=== PATIENT | female | born 1965 | race Caucasian/White ===

== ENCOUNTER 2021-02-04 11:03 | Day surgery (SDC) | payer BC, SELFPAY ==
[2021-02-04 11:17] VITALS: BMI 22.1
[2021-02-04 11:25] VITALS: BP 153/92; PULSE 89; RESP 16; TEMP 36.4; O2SAT 98
--- NOTE | 2021-02-04 11:39 | HO.ANESPROP2 ---
HPI - Anesthesia Eval Consult details Narrative: 55 year old female patient for colonoscopy [facility] Past Medical History Medical History (Updated 02/04/21 @ 11:48 by Laura Porras) Diverticulitis Graves disease H/O thyroid cyst Hyperplastic colon polyp Neck pain Family History Family history of problems with anesthesia: No Surgical History Surgical History H/O colonoscopy History of spinal fusion Hx laparoscopic cholecystectomy History of Problems with Anesthesia: No Social History Social History Patient Tobacco Use Status: Never used Tobacco Second Hand Smoke Exposure: No Use of substances other than those prescribed or required for medical reasons: No Are you DNR?: No Advance Directives: No Advance Directives Information Provided: Yes Advance Directives on File: No Meds Allergies Allergy/AdvReac Type Severity Reaction Status Date / Time No Known Allergies Allergy Unverified 04/29/20 17:21 Active Medications: Current Medications Generic Name Dose Route Start Last Admin Trade Name Samantha PRN Reason Stop Dose Admin Lactated Ringer's 1,000 mls @ 100 mls/hr 02/04/21 11:15 Lr IVCONT .Q10H [facility] Home Medications Medication Instructions Recorded Confirmed Last Taken Type amitriptyline tab PO BEDTIME 02/04/21 Unknown History sucralfate PO 02/04/21 Unknown History sulfamethoxazole-trimethoprim 1 tab PO BID 02/04/21 02/04/21 Unknown History Exam Exam Date and Time: February 04, 2021 1139 Height,Weight and Vital Signs: Height 5 ft 3 in Weight 56.699 kg Last Vital Signs Temp 97.5 F 02/04/21 11:25 Pulse 89 02/04/21 11:25 Resp 16 02/04/21 11:25 BP 153/92 H 02/04/21 11:25 Pulse Ox 98 02/04/21 11:25 Airway Mallampati Class: II TM Dist: >3cm Neck ROM: Limited (Cervical fusion) Heart: RRR ??murmur Lungs: CTAB Assessment and Plan Assessment Anesthesia Assessment: Anesthesia Plan Discussed and Chart Reviewed Final Anesthetic Review NPO: Yes ASA Class: II Final Preanesthetic Review: No Changes in Pt Med Stat, Meds/Allgs Chart Reviewed, Consent Obtained/Reviewed and Anes Risks/Benef Reviewed Patient Risk: Low Procedure Risk: Low Assessment/Block/Sedation in SS: Assess/Block/Sedation-SS Anesthetic Plan Anesthetic Plan: MAC: Disposition: Standard PACU
--- NOTE | 2021-02-04 12:10 | MHC.SHP ---
Pre-Procedural Eval Section A Date of Service: 02/04/21 Section B Chief Complaint: diarrhea Details of Present Illness: seeH&P no changes Relevant Family History (Specify if Yes): Yes Relevant Social History: None Present Medications: see Short Stay Collaborative assessment Medical History: No relevant PMH History of Previous Operations: No relevant previous surgery Allergies: Allergies Allergy/AdvReac Type Severity Reaction Status Date / Time No Known Allergies Allergy Unverified 04/29/20 17:21 Review of Systems Sugical H&P ROS: Negative: Constitution, Cardiovascular, Respiratory, Neurological, Psychiatric, Hem-Onc, Allergic/Immunologic, Gastrointestinal, Genitourinary, Musculoskeletal, Integumentary, Endocrine and Eyes/Ears/Nose/Throat Exam Surgical H&P Exam: Normal: HEENT, Normal: Heart, Normal: Lungs, Normal: Extremities, Normal: Abdomen, Normal: Skin and Normal: Neurological Plan Diagnosis/Plan: Unchanged I have reviewed the history and physical and performed a pertinent physical examination on my patient. No changes have occurred unless specified.
[2021-02-04 12:46] VITALS: BP 111/77; PULSE 86; RESP 16; TEMP 36.2; O2SAT 99
--- NOTE | 2021-02-04 12:46 | MHC.SHP ---
Pre-Procedural Eval Section A Date of Service: 02/04/21 The patient is an INPATIENT: No Section B Chief Complaint: diarrhea Details of Present Illness: see h&p. Stool studies negative. Relevant Social History: None Present Medications: see Short Stay Collaborative assessment Medical History: No relevant PMH History of Previous Operations: No relevant previous surgery Allergies: Allergies Allergy/AdvReac Type Severity Reaction Status Date / Time No Known Allergies Allergy Unverified 04/29/20 17:21 Review of Systems Sugical H&P ROS: Negative: Constitution, Cardiovascular, Respiratory, Neurological, Psychiatric, Hem-Onc, Allergic/Immunologic, Gastrointestinal, Genitourinary, Musculoskeletal, Integumentary, Endocrine and Eyes/Ears/Nose/Throat Exam Surgical H&P Exam: Normal: HEENT, Normal: Heart, Normal: Lungs, Normal: Extremities, Normal: Abdomen, Normal: Skin and Normal: Neurological Plan Diagnosis/Plan: Change (risks and benefits of colonoscopy discussed with patient, she agrees to proceed.) I have reviewed the history and physical and performed a pertinent physical examination on my patient. No changes have occurred unless specified.
--- NOTE | 2021-02-04 12:49 | PM.OP ---
Brief Operative Note Date of Service: 02/04/21 Pre-op diagnosis: diarrhea Post-op diagnosis: same Procedure: colonoscopy Surgeon: Tristan Sanchez Was an Conventional Mortgage Underwriter used for this Procedure?: No Estimated blood loss (mL): 5 Pathology: other (bx's ti, r colon, sigmoid) Condition: stable Disposition: PACU
[2021-02-04 13:01] VITALS: BP 116/69; PULSE 80; RESP 16; O2SAT 99
--- NOTE | 2021-02-04 22:23 | OP_ITS ---
SURGEON: Tristan Sanchez MD INDICATIONS: Diarrhea and change in bowel habits. PREOPERATIVE DIAGNOSIS: POSTOPERATIVE DIAGNOSIS: PROCEDURE PERFORMED: ESTIMATED BLOOD LOSS: COMPLICATIONS: ANESTHESIA: ASSISTANTS: SPECIMENS: PROCEDURE: Colonoscopy to the terminal ileum with biopsy. MEDICATIONS: Monitored anesthesia care. DESCRIPTION OF PROCEDURE: The history and physical was performed. The risks and benefits of the procedure were explained to the patient, and informed consent was obtained. The patient was placed in left lateral decubitus position. A digital rectal exam was performed and was found to be normal. The Olympus pediatric video colonoscope was introduced into the rectum and advanced to the cecum without difficulty. The cecum was identified by transillumination, palpation, and identification of ileocecal valve. Examination was performed. The scope was removed. She tolerated the procedure well and was taken to recovery area in stable condition. FINDINGS: The terminal ileum was examined and appeared normal. The visualized colonic mucosa was within normal limits, without evidence of masses or ulcers. No polyps were identified. There was mild sigmoid diverticulosis with a few scattered diverticula throughout the remainder of the colon. There was no evidence of endoscopic colitis or ileitis. Biopsies were obtained from the right colon, terminal ileum, and sigmoid. Retroflexed examination showed moderate-sized internal hemorrhoids. The quality of the prep was good. IMPRESSION: Normal colonoscopy. RECOMMENDATION: Follow up the biopsy results. MD NEETU Saldivar/ANTHONY / [phone]
== END 2021-02-04 13:51 | disposition home or self-care (01) ==
PROVIDERS: PCP Internal Medicine; Visit Provider Internal Medicine Gastroenterology
PROC: 0DJD8ZZ Inspection of Lower Intestinal Tract, Via Natural or Artificial Opening Endoscopic (ICD-10-PCS; CPT 45378; principal; 2021-02-04 12:00)
DX: R19.4 Change in bowel habit (principal); R19.7 Diarrhea, unspecified; K57.30 Diverticulosis of large intestine without perforation or abscess without bleeding; K64.8 Other hemorrhoids; E05.00 Thyrotoxicosis with diffuse goiter without thyrotoxic crisis or storm; Z90.49 Acquired absence of other specified parts of digestive tract; Z79.899 Other long term (current) drug therapy
CPT/HCPCS: 45380; 88305

== ENCOUNTER 2024-12-16 07:25 | Day surgery (SDC) | payer BC, SELFPAY ==
--- OUTSIDE RECORDS SUMMARY | 2024-12-02 12:59 | XMS_ITS | Patient Health Record ---
Author Organization [facility] Address [address] [place] [address] Care Team Providers Care Apartment Manager Name Role Phone Tree Aaron Primary Care Provider Unavaila ble Tristan Sanchez Jr Unavailable Allergies No Known Allergies Reason For Referral Referring Provider First Name Tree Referring Provider Last Name Galen Referring Provider Speciality Internal M edicine Referred Organization [facility] Referred Provider Tristan Sanchez Jr Referred Address [address],[place], [place],[address], Referred Provider Specialty Gastroentero logy Referral Priority Routine Medications Medication SIG (Take, Route, Frequency, Duration) Notes Start Date End Date Status Losartan Potassium 50 MG Oral for 90 Days Active Losartan Potassium 50 MG Oral for 90 Days Not-Taking Vitamin D3 Active Omeprazole 40 MG 1 capsule 1/2 to 1 hour before morning meal Orally Once a day for 30 days as needed 10/20/2024 Active Probiotic Active Multivitamin Active Immunizations Vaccine Route Administration Date Status Comme nts Influenza Unknown 05/26/2020 Administered Influenza Unknown 11/28/2024 Refused Social History Tobacco Use: Social History Observation Description Date Details (start date - stop date) Never Smoker NA - NA Tobacco Use/Smoking Question Answer Notes Patient is a nonsmoker Alcohol Screen Question Answer Notes Did you have a drink contain ing alcohol in the past year? Yes How often did you have a dri nk containing alcohol in the past year? 2 to 3 times a week (3 points) How often did you have 6 or more drinks on one occasion in the past year? Never (0 point) Points 3 Interpretation Positive Problems Problem Type SNOMED Code ICD Code Onset Dates Problem Status W/U Status Risk Notes Problem 505229604 Change in bowel habits (R19.4) Active confirmed Problem 22200418 Diarrhea, unspecified type (R19.7) Active confirmed Problem 380627368 Gastroesophageal reflux disease, unspecified whether esophagitis present (K21.9) Active confirmed Vital Signs Temperature 97.8 degrees Fahrenheit 11/28/2024 Blood pressure diastolic 01 mm Hg 11/28/2024 Height 63.5 in 11/28/2024 Blood pressure systolic 001 mm Hg 11/28/2024 Weight 130 lbs 11/28/2024 BMI 22.66 kg/m2 11/28/2024 Encounters Encounter Location Date Provider Diagnosis [facility] [address] [place] [address] 11/28/2024 Tristan Sanchez Jr Gastroesophageal reflux disease, unspecified whether esophagitis present K21.9 [facility] [address] [place] [address] 10/17/2024 Tristan Sanchez Jr Assessments Encounter Date Diagnosis (ICD Code) Assessment Notes Treatment Notes Treatment Clinical Notes Section Notes 11/28/2024 Gastroesophageal reflux disease, unspecified whether esophagitis present (ICD-10 - K21.9) We discussed gastroesophageal reflux disease today. We discussed diet, lifestyle modifications, and weight management. We recommended she continue omeprazole. It is possible that her recent RSV infection has exacerbated her symptoms. Because of her longstanding and persistent symptoms, we have recommended further evaluation with upper endoscopy. She is aware of risks and benefits and agrees to proceed. 11/28/2024 Other Endoscopy material was printed We discussed gastroesophageal reflux disease today. We discussed diet, lifestyle modifications, and weight management. We recommended she continue omeprazole. It is possible that her recent RSV infection has exacerbated her symptoms. Because of her longstanding and persistent symptoms, we have recommended further evaluation with upper endoscopy. She is aware of risks and benefits and agrees to proceed. Plan Of Treatment Pending Test Test Name Order Date LIVER PROFILE 11/17/2020 LIPASE 11/17/2020 CBC w/o DIFF 11/17/2020 STOOL WBC 11/17/2020 OVA & PARASITES (O&P) 11/17/2020 PANCREATIC ELASTASE 11/17/2020 FECAL FAT QUAL 11/17/2020 CULTURE, STOOL 11/17/2020 Future Test Test Name Order Date COLONOSCOPY 02/01/2021 UPPER GI ENDOSCOPY 11/28/2024 Next Appt Details Provider Name:Tristan Garcia Rodneymitch sharmakrystle Barreto, 12/16/2024 10:10:00 AM, [address] , [place], [place], [phone], Insurance Providers Payer Name Payer Address Payer Phone Subscriber Number Group Number Insured Name Patient Relationship to Insured Coverage Start Date Coverage End Date [facility] [employer] [address] [place] [address] [id number] ALIZA LIVINGSTON Self - patient is the insured Medical (General) History Medical History History ICD Code Neck Pain Graves' disease colonoscopy 09/24/18 for scre ening and a history of diverticulitis. Small rectal hyperplastic polyp, five-year followup Surgical History Surgery Date(Month/Year) right thyroid lobectomy, benign disease 2015 cholecystectomy 2014 Cervical Fusion - c 01/17 2017 Cervical Fusion - c- 12/16 2004
--- OUTSIDE RECORDS SUMMARY | 2024-12-02 12:59 | XMS_ITS | Patient Health Record ---
Author Organization [facility] Address [address] [place] [address] Care Team Providers Care Customer Care Voice Consultant Name Role Phone Tree Aaron MD Primary Care Provider Radha Arroyociara Rosario Unavailable [phone] Allergies No Known Allergies Reason For Referral No Information Medications Medication SIG (Take, Route, Frequency, Duration) Notes Start Date End Date Status Probiotic 1 capsule Orally onc e a day Active methIMAzole 10 MG as directed Orally O nce a day Active Bactrim Not-Taking LORazepam 0.5 MG 1 tablet at bedtime as needed Orally Once a day Not-Daniel ing Amitriptyline HCl 50 MG 1 tablet at bedt zafar Orally Once a day for 30 day(s) Not-Taking amLODIPine Besylate Active [place] 3-6-9 Complex Active Multivitamin as directed Orally O nce a day Active Social History Tobacco Use: Social History Observation Description Date Details (start date - stop date) Never Smoker NA - NA Tobacco Use/Smoking Question Answer Notes Are you a: nonsmoker Additional Findings: Tobacco Non-User Aggressive non-smoker Alcohol Screen Question Answer Notes Did you have a drink contain ing alcohol in the past year? Yes How often did you have a dri nk containing alcohol in the past year? 2 to 3 times a week (3 points) Points 3 Interpretation Positive Tobacco use other than smoking: Question Answer Notes Are you an other tobacco user? 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) Active confirmed Plan Of Treatment Pending Test Test Name Order Date X ray : Foot, left 3V 12/01/2022 Insurance Providers Payer Name Payer Address Payer Phone Subscriber Number Group Number Insured Name Patient Relationship to Insured Coverage Start Date Coverage End Date [facility] [address] [place] [address] [id number] Jude Masterson Other Medical (General) History Medical History History ICD Code Anxiety disorder Amnesia Tachycardia Hypothyroidism Kidney stones Reflux ( GERD) Insomnia Gall bladder problems Chicken pox Surgical History Surgery Date(Month/Year) cervical fusion 11/2004 cholecystectomy 2015 thyroidectomy 2017 1994 kidney stones 2018
--- OUTSIDE RECORDS SUMMARY | 2024-12-02 12:59 | XMS_ITS ---
Author Organization [facility] Address [address] [place] [address] Care Team Providers Care Front End Specialist Name Role Phone Galen Tree Primary Care Provider Alexandria Sanchez Jr, Tristan Cardona [phone] REASON FOR VISIT severe gerd? Medications Medication SIG (Take, Route, Fr equency, Duration) Notes Start Date End Date Status Omeprazole 40 MG 1 capsule 1/2 to 1 h our before morning meal Orally Once a day for 30 days 10/20/2024 Active Encounters Encounter Location Date Provider Diagnosis [facility] [address] [facility] [address] [place] [address] 10/17/2024 Tristan Sanchez Jr Plan Of Treatment Medication Medication Name Sig Start Date Stop Date Notes Omeprazole 40 MG 1 capsule 1/2 to 1 h our before morning meal Orally Once a day for 30 days 10/20/2024 Next Appt Details Provider Name:Tristan roman Jr, 12/16/2024 10:10:00 AM, [address] [place] [address], [phone], Progress Notes * ALIZA LIVINGSTON MDOB:1965 ( 59 yo F)Acc No.[id number]:10/17/2024 Patient:?ALIZA LIVINGSTON :1965???Age:59 Y???Sex:Female Address:[address] [place] [address] , [address], [place], [address] * Refills? Start Omeprazole Capsule Delayed Release, 40 MG, Orally, 30, 1 capsule 1/2 to 1 hour before morning meal, Once a day, 30 days, Refills=5 * true * Date:? Generated for Jeimy cason/Mendez/Cristhian on:?12/02/2024 12:59 PM EDT
--- OUTSIDE RECORDS SUMMARY | 2024-12-02 12:59 | XMS_ITS | Data Portability ---
Author Organization [place] [facility], [facility] - [facility]IENT Address [address] [place] [address] Care Team Providers Care Aircraft Landing Gear Inspector Name Role Phone MARISOL FLORES Primary Care Provider Assessment No assessment recorded. Plan of Treatment Reminders Order Date Submit Date Provider Last Modified By Organization Details Last Modified Time Details Appointments None recorded. Lab None recorded. Referral physical therapist referral - Diagnosis: Left Knee ArthritisFr equency: 2x a weekDuratio n: As directed by therapistTr eatment: Evaluate and treat as indicated, ROM and strengtheni ng 2023 024 [email or web address] [facility], [address] [place] [address], [id number], 4 09:54:18 Procedures None recorded. Surgeries None recorded. Imaging None recorded. Medication Orders Zilretta 32 mg intra-artic ular suspension, extended release 2024 025 [email or web address] Not available 5 10:33:56 Zilretta 32 mg intra-artic ular suspension, extended release 2023 024 [email or web address] [id number], [address], [place], [address], 4 07:52:38 Patient TargetsNo targets recorded. Patient InstructionsNo instructions recorded. Reason for Referral Physical Therapist Referral for Osteoarthritis of left knee joint Diagnosis: Left Knee ArthritisFrequency: 2x a weekDuration: As directed by therapistTreatment: Evaluate and treat as indicated, ROM and strengthening Referring Physician: Jarod Isabel, Nurse Practitioner- Specialist, Encounter Date: 12/27/2023 Results Created Date Observation Date Name Description Value Unit Range Abnormal Flag Note LastModifiedBy Organization Detail LastModifiedTime 12/27/1909/28/2023 MRI, knee, w/o contr ast No observ ation record ed. [email or web address] Not Available 12/26 09:22:00 Result Notes None recorded. Procedures Surgical History Date Name Laterality Status Provider Name and Address Organization Details Recorded Time 12/05/2004 Other completed Nadege Tong [facility] 12/27/2023 09:23:45 Imaging Results Imaging Date Name Status LastModified by Organiz ation Details LastModified Time 09/28/2023 MRI, knee, w/o contrast completed Information not available 12/27/2023 09:22:00 Procedure Notes None recorded. Medical Equipment None Reported. Allergies No known drug allergies Medications Name Sig Start Date Stop Date Status Note LastModified by Organization Details LastModified Time Zilretta 32 mg intra-art icular suspensio n,extende d release Take 32 mg by intraarticular route. 2024 active Not Available Not Available Not Avai lable Vitals Date Recorded Body weight Body mass index (BMI) Body height Provider Name and Address Organization Details Last Updated DateTime 12/27/2023 21698.05 g 21.8 kg/m2 161.29 cm Nadege Tong [facility] 12/27/2023 09:24:45 Date Recorded Body height Provider Name an d Address Organization Details Last Updated DateTime 02/13/2024 161.29 cm Rosio Jose [facility] 02/13/2024 07:44:40 Social History Question Answer Notes LastModified by Organizat ion Details LastModified Time Tobacco Smoking Status Never Smoker Nadege sauceda [facility] 12/27/2023 09:23:28 What Is Your Level Of Alcohol Consumption? Occasional [email or web address] Information not available 12/27/2023 Do You Or Have You Ever Used E-cigarettes Or Vape? 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 Mental Status None recorded. Family History Relationship Description Onset Age of this Age Resolved Age Notes LastModified by Organization Details LastModified Time Brother History of anesthesia problem [email or web address] Not available 12/26 09:23:21 Sister Pulmonary embolism [email or web address] Not available 12/26 09:23:21 Medical History Condition Response Thyroid Disorder Y Kidney / Bladder Infections Y Gynecological HistoryNo gynecological history recorded. Obstetrics History GPAL:G 0 P 0 0 0 0 Past Encounters Encounter ID Performer Location Encounter Start Date Encounter Closed Date Diagnosis/Indication Diagnosis SNOMED-CT Code Diagnosis ICD10 Code Diagnosis Note [id number] JAROD ISABEL NP [facility] [address] [facility] [address] [place] [address] 12/27/2023 09:04:24 12/27/2023 09:50:48 Osteoarthritis of left knee joint 2043085620 16382 M17.12 The patient has {{MILD MOD ERATE* SEV ERE}} patellofem oral osteoarthr itis of the {{RIGHT LE FT* BILATE RAL}} knee that {{HAS HAS NOT*}} failed conservati ve treatment. I would recommend {{ trying physical therapy and getting prior authorizat ion for a zilretta injection# }}. She will follow up with me for that injection once we have the approval. [id number] [facility] [address] [place] [address] 02/13/2024 07:41:48 02/13/2024 08:11:41 Osteoarthritis of left knee joint [id number] 51585 M17.12 Using sterile technique, I injected the {{LEFT* RI GHT BILATE RAL}} knee with 32mg of Zilretta - triamcinol one acetonide extended-r elease injectable suspension . The patient will follow up as needed. [id number] JAROD [facility]ABEL [facility] [address] [facility], [address] [place] [address] 08/01/2024 07:33:59 08/01/2024 13:16:08 Osteoarthritis of left knee joint [id number] 83431 M17.12 The patient has {{MILD MOD ERATE* SEV ERE}} patellofem oral osteoarthr itis of the {{RIGHT LE FT* BILATE RAL}} knee that {{HAS HAS NOT*}} failed conservati ve treatment and has responded well to the previous zilretta injection and standard kenalog did not give her significan t relief. I would recommend repeating that injection. We will submit for a prior authorizat ion for zilretta and she will follow up with us once it's approved.T his visit was conducted as a real time interactiv e {{audio au michelle/visual *}} telehealth visit conducted via {{Qure 4 U* Doxyme FaceTime P abner Call}} The patient was identified by name and date of and consented to this telehealth visit. The patient was at their home in [facility] and I was at my {{[place] [facility] [place] office [place] e in [facility]*}}. Participan ts of the telehealth visit included myself and the patient. The patient was last seen for an office visit on {{DATE 10/2023}}. This visit was done over the course of {{10 20* 3 0}} minutes including record review. [id number] Jarod Isabel, VIN[facility] [address] [place] [address] 09/26/2024 10:16:06 09/26/2024 10:35:48 Osteoarthritis of left knee joint [id number] 18377 M17.12 Using sterile technique, I injected the {{LEFT* RI GHT BILATE RAL}} knee with 32mg of Zilretta - triamcinol one acetonide extended-r elease injectable suspension . The patient will follow up as needed. Health Concerns Section Related Observation LastModified by Organization Detai ls LastModified Time None Recorded Concern Status LastModified by Organization Details LastModified Time None Recorded Advance Directives Directive None Recorded Payers Encounter Date Sequence Insurance Name Policy Number Policy Monahan Covered Member ID Monahan Member ID Guarantor Name 12/27/[address] [facility] [id number] Jude Masterson [id number] Bibi Masterson 02/13/2024 1 [place] [facility] [id number] Jude Masterson [id number] Bibi Masterson 08/01/[address] [facility] [facility] [id number] Jude Masterson [id number] Bibi Masterson 09/26/[address] [facility] [id number] Jude Masterson [id number] Bibi Masterson Notes Date Note Type Note Provider Name and Address Organization Details Recorded Time 12/27/2023 text/html The patient is a {{ 58#}} year old {{MALE FEMALE*}} who comes in complaining of {{RIGHT LEFT* BILA TERAL}} knee pain for {{ about 5 months now#}} and aggravated it when bowling, though she states her knee has talked to her for years now. She states she got a lot of swelling after the bowling incident. The patient ambulates today {{WITH A WITHOUT*}} {{AN ASSISTIVE DEVICE* CANE CRUTC H WALKER}}. The pain is on the {{ANTERIOR MEDIAL* LATERAL DIFFUSED} } {{ANTERIOR MEDIAL LATERAL DIFFUSED P OSTERIOR#}} aspects of the knee. She states she has good days and bad days. The pain {{IS* IS NOT}} worse with {{WEIGHT BEARING CLIMBING STAIRS GETTING UP FROM A CHAIR AFTER SITTING FOR A WHILE WALKING*}} {{WEIGHT BEARING CLIMBING STAIRS GETTING UP FROM A CHAIR AFTER SITTING FOR A WHILE WALKING flex ing it#}} {{WEIGHT BEARING CLIMBING STAIRS GETTING UP FROM A CHAIR AFTER SITTING FOR A WHILE WALKING knee ling on it#}}. She wears a neoprene sleeve and that helps her. It {{DOES* DOES NOT}} wake the patient up at night. The patient does not take medications for this. She cannot tolerate NSAIDs because she has a bad kidney. The patient has done other treatments including {{ORAL NSAIDS PHYSICAL THERAPY GEL INJECTIONS STEROID INJECTIONS*}}. Their last injection was on {{ September 22, 2023#}}. These {{DO DO NOT*}} help the symptoms. She states she had her left leg swell up a decent amount and had seen a vascular specialist. The pain {{DOES* DOES NOT}} affect the patient's activities of daily living. JAROD ISABEL NP [address] [place], [address], [facility] 12/27/2023 09:49:19 02/13/2024 text/html This is a very pleasant {{ 58#}} year old {{MALE FEMALE*}} presenting today for a zilretta injection into the {{RIGHT LEFT* BILA TERAL}} knee. The risks and benefits have been discussed and the patient agrees to proceed. JAROD ISABEL NP [address] [place], [address], [facility] 02/13/2024 08:09:30 08/01/2024 text/html Patient is following up with me for {{LEFT* RIGHT BILA TERAL}} knee osteoarthritis. The pain is {{THE SAME BETTER THAN WORSE THAN*}} their last office visit. Conservative treatments that have been tried including STEROID INJECTIONS. Their last steroid injection was zilretta on {{ 02/13/2024#}}. Standard kenalog injections only help her for She cannot tolerate NSAIDs. She has also done PT.The pain is on the MEDIAL aspect of the knee. The pain {{IS* IS NOT}} worse with weight bearing. She likes to power walk and she can't do that now. The knee swells and clicks on her. The pain {{DOES* DOES NOT}} wake them up at night now. The pain {{DOES* DOES NOT}} affect their activities of daily living. JAROD ISABEL NP [address] [place], [address], [facility] 08/01/2024 09:10:57 09/26/2024 text/html This is a very pleasant {{ 59#}} year old {{MALE FEMALE*}} presenting today for a zilretta injection into the {{RIGHT LEFT* BILA TERAL}} knee. The risks and benefits have been discussed and the patient agrees to proceed. Jarod Isabel NP [address] [place], [address], [facility] 09/26/2024 10:32:52 OBGyn Episode No OBEpisode recorded.
--- OUTSIDE RECORDS SUMMARY | 2024-12-02 13:00 | XMS_ITS ---
Author Organization [facility] Address [address] [place] [address] Care Team Providers Care Multifocal Button Inspector Name Role Phone Tree Aaron Primary Care Provider Unavaila Tristan Nj Jr REASON FOR VISIT DIARRHEA Encounters Encounter Location Date Provider Diagnosis [facility] [address] [address] 07/31/2024 Tristan Sanchez Jr Plan Of Treatment Next Appt Details Provider Name:Tristan roman Jr, 12/16/2024 10:10:00 AM, [address] [place] [address] , [place], [place], [phone], Progress Notes * ALIZA LIVINGSTON MDOB:1965 ( 59 yo F)Acc No.[id number]:07/31/2024 Progress Notes Patient:?ALIZA LIVINGSTON Provider:?Tristan Sanchez MD :1965???Age:59 Y???Sex:Female D ate:07/31/2024 Address:[address] [place], [place] [id number] Pcp:Tree Aaron Subjective: * Chief Complaints: * ???1. DIARRHEA. * Medical History:? Objective: * Vitals:? Assessment: Plan: * Treatment: * * The named appointment provid er may or may not be the originator of this progress note, and it is not deemed complete until electronically signed by the appointment provider. Sign off status: Pending * Provider:?Tristan Sanchez MD Date:?1 10/01/2023 Generated for Jeimy cason/Mendez/Parisitting on:?12/02/2024 12:59 PM EDT
--- OUTSIDE RECORDS SUMMARY | 2024-12-02 13:00 | XMS_ITS ---
Author Organization [facility] Address [address] [place] [address] Care Team Providers Care Retirement Actuary Name Role Phone Tree Aaron Primary Care Provider Tristan Arnold Jr Unavailable [phone] Allergies No Known Allergies REASON FOR VISIT Patient presents today for diarrhea Medications Medication SIG (Take, Route, Frequency, Duration) Notes Start Date End Date Status Losartan Potassium 50 MG Oral for 90 Days Active Vitamin D3 Active Omeprazole 40 MG 1 capsule 1/2 to 1 hour before morning meal Orally Once a day for 30 days as needed 10/20/2024 Active Probiotic Active Losartan Potassium 50 MG Oral for 90 Days Not-Taking Multivitamin Active Immunizations Vaccine Route Administration Date Status Comme nts Influenza Unknown 11/28/2024 Refused Social History Tobacco [...] Problem Status W/U Status Risk Notes Problem [id number] Gastroesophageal reflux disease, unspecified whether esophagitis present (K21.9) Active confirmed Vital Signs Temperature 97.8 degrees Fahrenheit 11/29/19 25 Blood pressure systolic 001 mm Hg 11/29/19 25 Blood pressure diastolic 01 mm Hg 025 Height 63.5 in 11/28/2024 Weight 130 lbs 11/28/2024 BMI 22.66 kg/m2 11/28/2024 Encounters Encounter Location Date Provider Diagnosis [facility] [address] [place] [address] 11/28/2024 Tristan Sanchez Jr Gastroesophageal reflux disease, unspecified whether esophagitis present K21.9 Assessments Encounter Date Diagnosis (ICD Code) Assessment [...] and agrees to proceed. Plan Of Treatment Treatment Notes Assessment Notes Other Endoscopy material w as printed Future Test Test Name Order Date UPPER GI ENDOSCOPY 11/28/2024 Next Appt Details Follow Up: 1 Year, Reason: Provider Name:Tristan roman Jr, 12/16/2024 10:10:00 AM, [address] [place] [address] , [place], [place], [phone], Progress Notes * ALIZA LIVINGSTON MDOB:1965 ( 59 yo F)Acc No.[id number]:11/28/2024 Progress Notes Patient:?ALIZA LIVINGSTON Provider:?Tristan Sanchez MD :1965???Age:59 Y???Sex:Female D ate:11/28/2024 Address:[address] [place], [place] [id number] Pcp:Tree Aaron Subjective: * Chief Complaints: * ???1. Patient presents today for diarrhea. * HPI: ???New symptom(s):?Aliza is a pleasant 59-year-old woman seen today in consultation.She has a history of gastroesophageal reflux disease treated in the past with omeprazole. She was last seen in November 2020. Previous evaluation has included colonoscopy with biopsies which was normal, and stool testing including elastase which was normal. We reviewed this today. She has a history of gastroesophageal reflux disease and has had no dysphagia but some vomiting. She has also had some coughing. Reflux symptoms have not been under good control despite omeprazole 40 mg daily. She has a history of an RSV infection and had some vomiting in August. She was seen in the emergency department at [facility]. She was not prescribed treatment. She has been treating with diet. * ROS:?General/Constitutional:?Change in appetite?denies.?Fatigue?denies.?ENT:?Patient denies?difficulty swallowing.?Respiratory:?Patient denies?shortness of breath.?Cardiovascular:?Patient denies?chest pain.?Gastrointestinal:?Comments?See HPI for details.?Genitourinary:?Difficulty urinating?denies.?Incontinence?denies.?Musculoskeletal:?Patient denies?muscle aches.?Skin:?Patient denies?pruritis.?Neurologic:?Patient denies?low back pain.?Psychiatric:?Patient denies?mental or physical abuse.? * Medical History:?Neck Pain , Graves' disease, colonoscopy 09/24/18 for screening and a history of diverticulitis. Small rectal hyperplastic polyp, five-year followup. * Surgical History:?Cervical F usion - c- 12/16 2004, Cervical Fusion - c 01/17 2017, cholecystectomy 2014, right thyroid lobectomy, benign disease 2014. * Family History:?Father: dece ased, diagnosed with Colon polyps.?Mother: , diagnosed with Colon polyps.?Paternal Grand Father: diagnosed with Colon cancer.? Denies family hx of liver ds. Her father had pancreatic cancer, a sister also has cancer (lung cancer), and a benign pancreatic lesion that is being followed. * Social History:?Tobacco Use:?Tobacco Use/Smoking?Patient is a?nonsmoker.?Drugs/Alcohol:?Alcohol Screen?Did you have a drink containing alcohol in the past year??Yes,?How often did you have a drink containing alcohol in the past year??2 to 3 times a week (3 points),?How often did you have 6 or more drinks on one occasion in the past year??Never (0 point),?Points?3,?Interpretation?Positive.?Miscellaneous:?Marital status: single. Occupation: Dental Hygienist. * Medications:?Taking Multivit wetzel , Taking Probiotic , Taking Vitamin D3 , Taking Omeprazole 40 MG Capsule Delayed Release 1 capsule 1/2 to 1 hour before morning meal Orally Once a day , Notes to Pharmacist: as needed, Taking Losartan Potassium 50 MG Tablet Oral , Not-Taking/PRN Losartan Potassium 50 MG Tablet Oral , Discontinued MiraLax (colon prep) 8.3 ounce ((238) grams mixed with Gatorade or Crystal Light orally begin at 5:00 p.m. the day before the procedure , Discontinued Albuterol Sulfate HFA 108 (90 Base) MCG/ACT Aerosol Solution INHALE 2 PUFFS EVERY 6 HOURS NEEDED FOR WHEEZING/SHORTNESS OF BREATH Inhalation , Medication List reviewed and reconciled with the patient * Allergies:?N.K.D.A. Objective: * Vitals:?Wt: 130 lbs, Ht: 63. 5 in, BMI:22.66Index, BP: 001/01 mm Hg, Temp: 97.8, Wt-k.97. * Examination: ???General Examination: ?GENERAL APPEARANCE:?in no acute distress.?HEAD:?normocephalic.?EYES:?sclera non-icteric.?ORAL CAVITY:?mucosa moist.?NECK/THYROID:?no lymphadenopathy.?SKIN:?anicteric.?HEART:?S1, S2 normal, no murmurs.?LUNGS:?clear to auscultation bilaterally.?CHEST:?normal shape and expansion.?ABDOMEN:?soft, nontender, nondistended, bowel sounds present, no organomegaly .?EXTREMITIES:?no clubbing, cyanosis, or edema.?PSYCH:?cognitive function intact.? Assessment: * Assessment: 1.?Gastroesophageal reflux d isease, unspecified whether esophagitis present - K21.9 (Primary)??? We discussed gastroesophagea l reflux disease today. We discussed diet, lifestyle modifications, and weight management. We recommended she continue omeprazole. It is possible that her recent RSV infection has exacerbated her symptoms. Because of her longstanding and persistent symptoms, we have recommended further evaluation with upper endoscopy. She is aware of risks and benefits and agrees to proceed. Plan: * Treatment: 2.?Others? Notes: Endoscopy material was printed?? * Immunizations:? Influenza (Not administered - Refused: Patient decision) * Procedure Codes:?3017F COLOR ECTAL CA SCREEN DOC REV, G9903 Pt scrn tbco id as non user, G8785 BP SCR NOT PRFRM REC REASON NOS * Follow Up:?1 Year * * Sign off status: Completed true * Provider:?Tristan Sanchez MD Date:?0 11/28/2024 Generated for Jeimy cason/Mendez/eTransmitting on:?12/02/2024 12:59 PM EDT History and Physical Notes * HPI (History of Present Illness) Category Sub-Category Detail Notes Category Not es New symptom(s) Aliza is a ple asant 59-year-old woman seen today in consultation.She has a history of gastroesophageal reflux disease treated in the past with omeprazole. She was last seen in November 2020. Previous evaluation has included colonoscopy with biopsies which was normal, and stool testing including elastase which was normal. We reviewed this today. She has a history of gastroesophageal reflux disease and has had no dysphagia but some vomiting. She has also had some coughing. Reflux symptoms have not been under good control despite omeprazole 40 mg daily. She has a history of an RSV infection and had some vomiting in August. She was seen in the emergency department at [facility]. She was not prescribed treatment. She has been treating with diet. Examination Category Sub-Category Detail Notes Category Not es General Examination GENERAL APPEARANCE: in no acute di stress HEAD: normocephalic EYES: sclera non-icteric NECK/THYROID: no lymphadenopathy HEART: S1, S2 normal, no mu rmurs CHEST: normal shape and exp ansion LUNGS: clear to auscultatio n bilaterally ABDOMEN: soft, nontender, non distended, bowel sounds present, no organomegaly SKIN: anicteric EXTREMITIES: no clubbing, cyanosi s, or edema PSYCH: cognitive function i ntact ORAL CAVITY: mucosa moist
--- OUTSIDE RECORDS SUMMARY | 2024-12-02 13:00 | XMS_ITS | Encounter Summary ---
Author Organization [facility] Address [address] [place] [address] Phone Care Team Providers Care Assigner Name Role Phone Tree Aaron MD Primary Care Provid er Encounter Details Date Type Department Care Team (Late st Contact Info) Description 09/22/2023 Procedure Pass [facility], Ct Scan - [address] [address] Social History Tobacco Use Types Packs/Day Years Used Date Smoking Tobacco: Never Smokeless Tobacco: Never Alcohol Use Standard Drinks/Week Comments Not Currently 0 (1 standard drink = 0.6 oz pur e alcohol) Education Answer Date Recorded Are you interested in more education? Not on walter e 04/24/2023 Are you concerned about learning? Not on file 04/24/2023 No 04/24/2023 No 04/24/2023 Digital Access Answer Date Recorded No 04/24/2023 No 04/24/2023 Reliable internet access at home? Not on file 04/24/2023 Device with a working camera? Not on file Intimate Partner Violence Answer Date R ecorded Are you denied basic needs s uch as food, clothing, or medical care? No 09/22/2023 In the past 12 months have y ou been in a relationship with a person who hurts, threatens, or tries to control you? No 09/22/2023 Are you denied basic needs s uch as food, clothing, or medical care? No 09/22/2023 In the past 12 months have y ou been in a relationship with a person who hurts, threatens, or tries to control you? No 09/22/2023 Sex and Gender Information Value Date Recorded Sex Assigned at Not on file Gender Identity Not on file Sexual Orientation Not on file documented as of this encounter Plan of Treatment Not on file documented as of this encounter Visit Diagnoses Not on filedocumented in this encounter Care Teams Assigner Relationship Specialty Start Date End Date Tree Aaron MD [address] [place] [phone] PCP - General Internal Medicine 08/14/23 documented as of this encounter Additional Source Comments The information contained in this document represents components of the legal health record. It is not the complete legal health record.[facility]
--- OUTSIDE RECORDS SUMMARY | 2024-12-02 13:00 | XMS_ITS | Continuity of Care Document ---
Author Organization [facility] Address [address] [place] [address] [address] [place] [phone] Phone Care Team Providers Care Metrology Manager Name Role Phone Galen DARLING, MATHIEU, Nestor VIDALES Unavailable U navailable Procedures Procedure Date Offic/outpt E&m Estab 5 Min Trial- Telem edicine CT & [place] Office/Oupt E&M New Pt 45 Mins 24 Surgical Stockings CVR Reveal Thigh High Duplex Scan-extrem Veins; Uni/ 24 Advance Directives Directive Yes / No Effective Date File Name No Information Encounters Encounter Description Practice Location Reason(s) For Visit Diagnoses Date Provider Providers Copied on Encounter Offic/outpt E&m Estab 5 Min Trial- Telemedicine CT & [place] [facility], [address] [place] [address] [address], [place], [id number], [place] tel:[phone] CVR - [place] - [place] Chronic venous hypertension (idiopathic) with other complications of bilateral lower extremityCramp and spasmRestless legs syndromeLymphe blanche, not elsewhere classifiedHere ditary lymphedema 4 Galen DARLING, MATHIEU, FLASH Baez. [address] [facility], [address], [place], [place], [id number] , [place]. tel:[phone] Referring Provider: Tree Aaron MD, [address] [place] [address], [id number]. tel:[phone] Office/Oupt E&M New Pt 45 Mins [facility], [address] [place] [address] Dr Rosales [address] [place], [place] [address], [id number], tel:[phone] CVR - [place] - [place] Chronic venous hypertension (idiopathic) with other complications of left lower extremityLocal ized edemaCramp and spasmRestless legs syndromeVenous insufficiency (chronic) (peripheral)Ly mphedema, not elsewhere classifiedHere ditary lymphedema 4 Galen DARLING, MATHIEU, FLASH Baez. [address] [place] [address], [place], [id number] , [place]. tel:[phone] Referring Provider: Tree Aaron MD, [address] [place] [address], [id number]. tel:[phone] [facility], [address] [place] [address] Dr Rosales [address] [place], [place] [address], [id number], [place] tel:[phone] CVR - [place] - [place] Pain in left leg 4 Galen DARLING RVT, RPVI Robert. [address] [place] [address], [place], [place], [id number] , [place]. tel:[phone] Referring Provider: Tree Aaron MD, [address] [place] [address], [id number]. tel:[phone] Family History Family Member Type Diagnosis Age At Onset No Information Payers Payer name Insurance type Covered libertarian ID Cecilia muniz(s) [facility] [id number] Social History Type Description Quantity Date Captured Comments Alcohol Use Details Unknown Caffeine Use Details Unknown Tobacco Use Status Current non-smoker Smoking Status Never Smoker Non-Smoking Tobacco Use Details : No Details Available : No Details Available Sex Female Vital Signs Date / Time: Height Weight BMI Pulse Rate Blood Pressure Temperature Respiratory Rate Body Surface Area Head Circumference Head Circ. Percentile Wt./Félix. Percentile BMI percentile Pulse Ox Inhaled Ox 56.700 kg (125.00 lbs) 22.1 8 kg/m eter (2) Chief Complaint And Reason For Visit No Information Reason For Referral Reason For Referral No Information Plan Of Treatment Date Type Action Status Goal Diet education completed Referral Ordered: Weight management: Referral to physician timeframe: 3 Months (related to Body mass index (BMI) 22.0-22.9, adult) ordered History Of Present Illness Encounter Date Complaint History Of Prese nt Illness No Information Functional Status Date Functional Assessmen t No Information Instructions Date Instruction Additional Infor hernandez Patient education booklet given Related to Chronic venous hypertension (idiopathic) with other complications of bilateral lower extremity Pre and post instruc tions reviewed and provided Related to Chronic venous hypertension (idiopathic) with other complications of bilateral lower extremity Patient education booklet given Related to Chronic venous hypertension (idiopathic) with other complications of left lower extremity Pre and post instruc tions reviewed and provided Related to Chronic venous hypertension (idiopathic) with other complications of left lower extremity Diet education Related to Body mass index (BMI) 22.0-22.9, adult Giving Encouragement to exercise Related to Body mass index (BMI) 22.0-22.9, adult Lifestyle education Related to B gail mass index (BMI) 22.0-22.9, adult Assessments Type Assessment Date No Information Patient Care Teams Name Effective Dates (start - stop) Status Members No Information
--- OUTSIDE RECORDS SUMMARY | 2024-12-02 13:00 | XMS_ITS | Continuity of Care Document ---
Author Organization [facility] Address [address] [facility] [address] [place] [address] Phone [phone] Care Team Providers Care Behavioral Services Tech Name Role Phone Tree Aaron M.D. Care Team Information Rec eiver [phone] Problems Active Problems Provider Date Graves' disease Dorothea Edmond M.D. Ons et: 10/26/2023 Thyroid nodule Dorothea Edmond M.D. Ons et: 10/26/2023 Burning mouth syndrome Janine Gray Onset: 10/26/2023 Chronic neck pain Dorothea Edmond M.D. O nset: 10/26/2023 Social History Type Date Description Comments Sex Unknown Lives With Son Occupation Dental Hygienist Work Status Full-Time Employment ETOH Use Occasionally consumes alcoho l Tobacco Use Start: Unknown Patient has never smoked Allergies and adverse reactions Description No Known Drug Allergies Medications Active Medications SIG Qnty Indications Ordering Provider Date Hair Skin And Nails FormulaTablets 1 by mouth every day Dorothea Edmond M.D. Multivitamin AdultsTablets 1 by mouth every day Dorothea Edmond M.D. ProbioticTablets DR 1 by mouth every day Dorothea Edmond M.D. Azo [id number] Capsules 1 by mouth every day Dorothea Edmond M.D. Vital Signs Date Vital Result Comment 10/26/2023 10:22am BP Systolic 120 mmHg BP Diastolic 80 mmHg Heart Rate 79 /min Height 63 inches 5'3 Weight 129.25 lb BMI (Body Mass Index) 22.9 kg/m2 Results Test Acquired Date Facility Test Result H/L Range Note Thyroxine (T4) Free, Direct 11/03/2024 [facility] Thyroxine (T4) Free, Direct 1.24 ng/dL 0.82-1. 77 TSH 11/03/2024 [facility] TSH 3.070 uIU/mL 0.450-4 .500 Triiodothyronine (T3), Free 11/03/2024 [facility] Triiodothyronine (T3), Free 3.0 pg/mL 2.0-4.4 Thyroid Stimulating Hormone (TSH) 10/22/2024 [facility] Thyroid Stimulating Hormone (TSH) <pending > Thyroxine (T4) Free Direct 10/22/2024 [facility] Thyroxine (T4) Free Direct <pending > Triiodothyronine (T3), Free 10/22/2024 [facility] Triiodothyronine (T3), Free <pending > TSH Rfx on Abnormal to Free T4 04/09/2024 [facility] TSH Rfx on Abnormal to Free T4 2.380 uIU/mL 0.450-4 .500 TSH RFX On Abnormal To Free T4 03/10/2024 [facility] TSH RFX On Abnormal To Free T4 <pending > Free T3 01/05/2023 [facility] Free T3 2.6 pg/mL (2.3-5. 0) Free T4 01/05/2023 [facility] Free T4 1.11 ng/dL (0.70-1 .80) TSH 01/05/2023 [facility] TSH 3.08 uIU/mL (0.4-4. 2) Free T4 04/07/2022 [facility] Free T4 1.06 ng/dL (0.70-1 .80) Free T3 04/07/2022 [facility] Free T3 3.1 pg/mL (2.3-5. 0) TSH 04/07/2022 [facility] TSH 3.03 uIU/mL (0.4-4. 2) Medical Devices Description No Information Available Encounters Type Date Location Provider Dx Diagnosis Office Visit 10/26/2023 10:15a Main Office Dorothea Edmond M.D. 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 10/26/2023 E04.1 Nontoxic single thyroid nodu le Dorothea Edmond M.D. Plan of Treatment Future Appointment(s):* 01/02/2025 8:15 am - Dorothea Edmond M.D. at Main Office 10/26/2023 - Dorothea Edmond M.D.* E05.00 Thyrotoxicosis with diffuse goiter without thyrotoxic crisis or storm * E04.1 Nontoxic single thyroid nodule Functional Status Description No Information Available Mental Status Description No Information Available Referrals Refer to Dr Reason for Referral Status Appt Christopher e Dorothea Edmond M.D. Closed [address] [place] [address] Drive [address] [place] [phone] Dorothea Edmond M.D. Created [address] [place] [address] Drive [address] [place] [phone] [phone]
--- OUTSIDE RECORDS SUMMARY | 2024-12-02 13:00 | XMS_ITS | Clinical Summary ---
Author Organization [facility] Address [address] [facility] [address] [place] [phone] Phone Care Team Providers Care Needle Control Cheniller Name Role Phone Tree Aaron MD Primary Care Provid er Allergies No known active allergies Medications Medication Sig Dispensed Refills Start Date End Date Status amLODIPine (NORVASC) 2.5 MG tablet 02/15/2023 Active methenamine (HIPREX) 1 gram tablet Take 1 tablet by mouth 2 (two) times a day. 06/14/2023 Active Active Problems No known active problems Social History Tobacco Use Types Packs/Day Years Used Date Smoking Tobacco: Never Smokeless Tobacco: Never Tobacco Cessation:Counseling Given: Not Answered Alcohol Use Standard Drinks/Week Comments Not Currently [...] on file Sexual Orientation Not on file Last Filed Vital Signs Vital Sign Reading Time Taken Comments Blood Pressure 145/74 09/22/2023 5:58 PM EST Pulse 78 09/22/2023 5:58 PM EST Temperature 36.9 ??C (98.4 ??F) 09/22/2023 5:58 PM ES T Respiratory Rate 20 09/22/2023 5:58 PM EST Oxygen Saturation 97% 09/22/2023 5:58 PM EST Inhaled Oxygen Concentration - - Weight 56.7 kg (125 lb) 09/22/2023 1:51 PM EST Height 160 cm (5' 3 ) 09/22/2023 1:51 PM EST Body Mass Index 22.14 09/22/2023 1:51 PM EST Plan of Treatment Health Maintenance Due Date Last Done Comments LIPID PANEL 1964 DEPRESSION SCREENING 1976 HEPATITIS B SCREENING 1982 HEPATITIS C SCREENING 1982 HIV ONE-TIME SCREENING (18-6 5 YEARS) 1982 PAP SMEAR 1985 MAMMOGRAM 2004 COLOGUARD 2009 COLONOSCOPY 2009 COLORECTAL CANCER SCREENING 2009 FIT TEST 2009 FOBT 2009 SIGMOIDOSCOPY 2009 VIRTUAL COLONOSCOPY 2009 PNEUMOCOCCAL VACCINES (50+ years) (1 of 1 - PCV) 2014 ZOSTER VACCINES (1 of 2) 2014 INFLUENZA VACCINE (#1) 2024 2, 05/30/2021, 05/27/2020 COVID-19 VACCINE (4 - 2023-2 5 season) 2024 06/24/2021, 09/30/2020, 08/27/2020 Adult Td,Tdap Booster 09/18/2029 09/18/2019 RSV VACCINE (1 - 1-dose 75+ series) 2039 SMOKING STATUS SCREENING (On ce After 26 Yrs) Completed 08/14/2023 HEPATITIS A VACCINES Aged Out No long er eligible based on patient's age to complete this topic HEPATITIS B VACCINES Aged Out No long er eligible based on patient's age to complete this topic HIB VACCINES Aged Out No longer eligi ble based on patient's age to complete this topic MENINGOCOCCAL VACCINES (ACWY) Aged Out No longer eligible based on patient's age to complete this topic Medical Devices Not on file Care Teams Needle Control Cheniller Relationship Specialty Start Date End Date Tree Aaron MD [address] [place] [phone] PCP - General Internal Medicine 08/14/23 Additional Source Comments The information contained in this document represents components of the legal health record. It is not the complete legal health record.[facility]
[2024-12-12 08:49] VITALS: BMI 22.7
--- NOTE | 2024-12-15 09:35 | HO.ANESPROP2 ---
Documented by User: Amelia Avina NP 12/15/24 09:35 HPI - Anesthesia Eval Consult details Narrative: 59yo F for Upper Endoscopy PMFSH Past Medical History Medical History HTN (hypertension) Hyperplastic colon polyp Diverticulitis Neck pain Graves disease H/O thyroid cyst Family History Family history of problems with anesthesia: No Surgical History Surgical History Hx of section History of lobectomy of thyroid H/O colonoscopy Hx laparoscopic cholecystectomy History of spinal fusion History of Problems with Anesthesia: No Social History Social History Patient Tobacco Use Status: Never used Tobacco Second Hand Smoke Exposure: No Use of substances other than those prescribed or required for medical reasons: Yes Substance Use Type Other:: edibles to sleep nightly Are you DNR?: No Advance Directives: No Advance Directives Information Provided: Yes Meds Allergies Allergy/AdvReac Type Severity Reaction Status Date / Time No Known Allergies Allergy Verified 12/16/24 07:56 Home Medications ?Medication ?Instructions ?Recorded ?Confirmed ?Last Taken ?Type cholecalciferol (vitamin D3) 25 25 mcg PO DAILY 12/12/24 12/16/24 Unknown History mcg (1,000 unit) tablet (Vitamin D3) lactobacillus combination no.4 3 3,000 mmu cells PO DAILY 12/12/24 12/16/24 Unknown History billion cell capsule (Probiotic) losartan 50 mg tablet 50 mg PO DAILY 12/12/24 12/16/24 Unknown History multivitamin 1 tab PO DAILY 12/12/24 12/16/24 Unknown History omeprazole 40 mg capsule,delayed 40 mg PO DAILY PRN Heartburn 12/12/24 12/16/24 Unknown History release Exam Height,Weight and Vital Signs: Height 5 ft 3.5 in Weight 58.967 kg Assessment and Plan Assessment Anesthesia Assessment: Chart Reviewed Final Anesthetic Review Family History of Problems with Anesthesia: No History of Problems with Anesthesia: No Documented by User: Erasmo Azevedo MD 12/16/24 11:45 PMFSH Past Medical History Medical History HTN (hypertension) Hyperplastic colon polyp Diverticulitis Neck pain Graves disease H/O thyroid cyst Surgical History Surgical History Hx of section History of lobectomy of thyroid H/O colonoscopy Hx laparoscopic cholecystectomy History of spinal fusion Social History Social History Patient Tobacco Use Status: Never used Tobacco Second Hand Smoke Exposure: No Use of substances other than those prescribed or required for medical reasons: Yes Substance Use Type Other:: edibles to sleep nightly Are you DNR?: No Advance Directives: No Advance Directives Information Provided: Yes Meds Allergies Allergy/AdvReac Type Severity Reaction Status Date / Time No Known Allergies Allergy Verified 12/16/24 07:56 Home Medications ?Medication ?Instructions ?Recorded ?Confirmed ?Last Taken ?Type cholecalciferol (vitamin D3) 25 25 mcg PO DAILY 12/12/24 12/16/24 Unknown History mcg (1,000 unit) tablet (Vitamin D3) lactobacillus combination no.4 3 3,000 mmu cells PO DAILY 12/12/24 12/16/24 Unknown History billion cell capsule (Probiotic) losartan 50 mg tablet 50 mg PO DAILY 12/12/24 12/16/24 Unknown History multivitamin 1 tab PO DAILY 12/12/24 12/16/24 Unknown History omeprazole 40 mg capsule,delayed 40 mg PO DAILY PRN Heartburn 12/12/24 12/16/24 Unknown History release Exam Airway Mallampati Class: II TM Dist: >3cm Neck ROM: Full Loose/Missing/Broken Teeth: Yes Assessment and Plan Assessment Anesthesia Assessment: Anesthesia Plan Discussed Final Anesthetic Review NPO: Yes ASA Class: II Final Preanesthetic Review: No Changes in Pt Med Stat, Meds/Allgs Chart Reviewed, Consent Obtained/Reviewed and Anes Risks/Benef Reviewed Patient Risk: Low Procedure Risk: Low Anesthetic Plan Anesthetic Plan: MAC: Disposition: Standard PACU
[2024-12-16 07:57] VITALS: BMI 22.3
[2024-12-16 08:15] VITALS: BP 141/85; PULSE 66; RESP 15; TEMP 36.6; O2SAT 98
[2024-12-16] MEDS: Lactated Ringers 1,000 ML 100 ML IVCONT (08:17)
--- NOTE | 2024-12-16 09:13 | MHC.SHP ---
Pre-Procedural Eval Section A - 24 Hr Update-Section A only Date of Service: 12/16/24 Section B - Complete if H&P > 30 days Chief Complaint: gerd Details of Present Illness: see H&P no changes Relevant Family History (Specify if Yes): No Relevant Social History: None Present Medications: see Short Stay Collaborative assessment Medical History: No relevant PMH History of Previous Operations: No relevant previous surgery Allergies: Allergies Allergy/AdvReac Type Severity Reaction Status Date / Time No Known Allergies Allergy Verified 12/16/24 07:56 Review of Systems Sugical H&P ROS: Negative: Constitution, Cardiovascular, Respiratory, Neurological, Psychiatric, Hem-Onc, Allergic/Immunologic, Gastrointestinal, Genitourinary, Musculoskeletal, Integumentary, Endocrine and Eyes/Ears/Nose/Throat Exam Surgical H&P Exam: Normal: HEENT, Normal: Heart, Normal: Lungs, Normal: Extremities, Normal: Abdomen, Normal: Skin and Normal: Neurological Plan Diagnosis/Plan: Unchanged I have reviewed the history and physical and performed a pertinent physical examination on my patient. No changes have occurred unless specified. Time Spent With Patient Time: Total time managing care of this patient today ____ minutes.
[2024-12-16 09:45] VITALS: BP 119/75; PULSE 80; RESP 20; TEMP 36.9; O2SAT 96
--- NOTE | 2024-12-16 09:53 | OP_ITS ---
DATE OF SERVICE: 12/16/2024 SURGEON: Tristan Sanchez MD PREOPERATIVE DIAGNOSIS: POSTOPERATIVE DIAGNOSIS: PROCEDURE PERFORMED: Upper endoscopy with biopsy. ESTIMATED BLOOD LOSS: COMPLICATIONS: ANESTHESIA: ASSISTANTS: SPECIMENS: INDICATION: Gastroesophageal reflux disease. MEDICATIONS: Monitored anesthesia care. DESCRIPTION OF PROCEDURE: History and physical was performed. The risks and benefits of the procedure were explained to the patient. Informed consent was obtained. The patient was placed in the left lateral decubitus position. The Olympus video gastroscope was introduced into the esophagus, stomach, and duodenum. Examination was performed and the scope was removed. She tolerated the procedure well and was returned to recovery area in stable condition. FINDINGS: Esophagus: The esophagus was remarkable for irregular EG junction. Stomach: The stomach showed no evidence of masses or ulcers. There were a few nonspecific streaks of erythema in the fundus and body. No ulcer was identified. Duodenum: The bulb and second portion were normal. The major papilla was identified and appeared normal. Biopsies were obtained from the EG junction and from the antrum. IMPRESSION: Gastroesophageal reflux disease. RECOMMENDATION: Follow up the biopsy results. MD NEETU Saldivar/ANTHONY / [id number]
[2024-12-16 10:00] VITALS: BP 130/76; PULSE 79; RESP 20; TEMP 36.4; O2SAT 96
== END 2024-12-16 10:02 | disposition home or self-care (01) ==
PROVIDERS: PCP Internal Medicine; Visit Provider Internal Medicine Gastroenterology
PROC: 0DJ08ZZ Inspection of Upper Intestinal Tract, Via Natural or Artificial Opening Endoscopic (ICD-10-PCS; CPT 43235; principal; 2024-12-16 09:20)
DX: K21.9 Gastro-esophageal reflux disease without esophagitis (principal); K22.89 Other specified disease of esophagus; K29.50 Unspecified chronic gastritis without bleeding; M54.2 Cervicalgia; E05.00 Thyrotoxicosis with diffuse goiter without thyrotoxic crisis or storm; Z87.19 Personal history of other diseases of the digestive system; Z79.899 Other long term (current) drug therapy; Z90.49 Acquired absence of other specified parts of digestive tract; Z90.89 Acquired absence of other organs; Z98.1 Arthrodesis status
CPT/HCPCS: 43239; 88305; 88313; 88342; J2003; J2704